=== PATIENT | male | born 1975 | race American Indian/Alaskan Native ===

== ENCOUNTER → 2023-12-25 09:10 | Outpatient (REF) | payer SELFPAY | LOC: HWRAD 09:10 | PROVIDERS: ATTENDING PHYSICIAN Internal Medicine | DX: E78.5 Hyperlipidemia, unspecified (principal) | CPT/HCPCS: 75571 ==

== ENCOUNTER → 2024-12-15 14:29 | Outpatient (REF) | payer OTHER, SELFPAY | LOC: HWRAD 14:29 | PROVIDERS: ATTENDING PHYSICIAN Internal Medicine | DX: M53.3 Sacrococcygeal disorders, not elsewhere classified (principal) | CPT/HCPCS: 72220 ==